=== PATIENT | male | born 1935 | race Caucasian/White ===

== ENCOUNTER 2022-04-28 13:34 | Emergency (ER) | payer OTHER, SELFPAY ==
[2022-04-28 14:05] VITALS: BP 143/74; PULSE 70; RESP 24; TEMP 36.1; O2SAT 97; BMI 33.2
--- NOTE | 2022-04-28 14:47 | CRLHL7_ITS ---
For Patients: As a result of the Century Cures Act, medical imaging exams and procedure reports are released immediately into your electronic medical record. You may view this report before your referring provider. If you have questions, please contact your health care provider. INDICATION: Trauma COMPARISON: None TECHNIQUE: : CT examination of the chest was performed without contrast. Thin axial sections were obtained from above the apices of the lungs to the lung bases. Please note that all CT scans at this facility use dose modulation, iterative reconstruction, and/or weight-based dosing when appropriate to reduce radiation dose to as low as reasonably achievable. FINDINGS: : HEART and MEDIASTINUM: Heart mildly enlarged. No mediastinal or hilar adenopathy or mass. Atherosclerotic vascular and valvular calcifications. No pericardial effusion. No indication of mediastinal vascular injury LUNGS: Basilar opacities likely related to atelectasis or scarring. 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 There is a small right effusion which is probably related to the rib fractures discussed below. There is no pneumothorax VISUALIZED UPPER ABDOMEN: Unusually hyperdense liver on this noncontrast study. The most common cause of this is chronic or prior amiodarone use. Cholelithiasis. No indication of the injury. OSSEOUS STRUCTURES: Demineralized osseous structures. Degenerative changes of the spine. No spine fracture. No sternal fracture. Fractures of the right 3rd through 7th ribs. Maximum displacement is about 1/2 of a rib shaft width TUBES and LINES: Left-sided pacer with leads ending in the right atrium and right ventricle. IMPRESSION: 1. There are fractures of the right 3rd through 7th ribs with maximum displacement about 1/2 of the rib shaft width. No additional acute fractures 2. Small right pleural effusion likely related to the trauma. No acute lung findings. No pneumothorax 3. Asbestos related pleural disease. 4. Other incidental nonacute appearing findings as above Please note that all CT scans at this facility use dose modulation, iterative reconstruction, and/or weight-based dosing when appropriate to reduce radiation dose to as low as reasonably achievable. Dictated by Derick Esteves MD @ 04/28/2022 4:47:42 PM (Electronically Signed)
--- NOTE | 2022-04-28 14:47 | CRLHL7_ITS ---
For Patients: As a result of the Century Cures Act, medical imaging exams and procedure reports are released immediately into your electronic medical record. You may view this report before your referring provider. If you have questions, please contact your health care provider. INDICATION: Trauma COMPARISON: February 20, 2022 TECHNIQUE: CT examination of the head was performed as axial sections without intravenous contrast. Images were obtained from the vertex of the skull through the skull base. Please note that all CT scans at this facility use dose modulation, iterative reconstruction, and/or weight-based dosing when appropriate to reduce radiation dose to as low as reasonably achievable. FINDINGS: Relatively large calcified meningioma in the anterior aspect of the sylvian fissure. This measures 2.9 by 2.4 by 1.9 centimeters and is unchanged. This has minimal mass effect upon the subjacent brain due to atrophy and the fact that it is within the sylvian fissure. There are involutional changes. There is moderate cortical atrophy and there is moderate to severe white matter disease. There is no hydrocephalus. The visualized portions of the orbits are normal in appearance. The osseous structures are normal in appearance with no sign of abnormality in the skull base or calvarium. IMPRESSION: 1. No acute intracranial posttraumatic findings. 2. Atrophy and white matter disease. 3. Relatively large calcified meningioma in the right frontotemporal area measuring 2.9 x 2.4 x 1.9 centimeters. This is unchanged. Little mass effect upon the subjacent brain include atrophy and the fact that the mass impinges upon the sylvian fissure Please note that all CT scans at this facility use dose modulation, iterative reconstruction, and/or weight-based dosing when appropriate to reduce radiation dose to as low as reasonably achievable. Dictated by Derick Esteves MD @ 04/28/2022 4:47:42 PM (Electronically Signed)
--- NOTE | 2022-04-28 14:51 | ED.GENADULT ---
HPI - General Adult General Time Seen by Provider: 14:51 Date Seen: 04/28/22 Chief complaint: Shoulder Injury/Pain Stated complaint: Fell, hurt right shoulder Time Seen by Provider: 04/28/22 13:58 Source: patient and family () Mode of arrival: ambulatory History of Present Illness HPI narrative: 86-year-old male presents for evaluation of injuries sustained in a fall 2 days ago. He was walking outside with a cane 2 days ago when he took a misstep and fell. He landed primarily on his right shoulder and upper back but also hit his right face andforehead. He did not lose consciousness. He denied any lightheadedness or feeling ill prior to falling. He was eventually able to get up back up on his feet and despite his 's recommendation he he come to the emergency room he refused until today. He came to the emergency room today because he is still being bothered primarily by pain in his right scapula area. He is also having some pain in his right upper lip where he has a laceration on the inside and multiple other small abrasions which are not bothering Him. he normally walks with a walker but was using a cane on this occasion. He does have a history of falls. He reports no recent illness. He has not had a cold, sore throat, fever, shortness of breath. He has a chronic cough which is unchanged. He has had no chest pain or syncope. Other than his injuries he has no other concerns today. Related Data Home Medications Medication Instructions Recorded Confirmed amiodarone 200 mg tablet mg 04/28/22 amlodipine 5 mg tablet mg 04/28/22 atorvastatin 20 mg tablet mg 04/28/22 citalopram 20 mg tablet mg 04/28/22 losartan 100 mg tablet mg 04/28/22 metoprolol succinate 25 mg mg PO 04/28/22 tablet,extended release 24 hr omeprazole 20 mg capsule,delayed mg 04/28/22 release rivaroxaban 20 mg tablet (Xarelto) mg 04/28/22 Allergies Allergy/AdvReac Type Severity Reaction Status Date / Time No Known Drug Allergies Allergy Verified 04/28/22 14:16 Review of Systems Narrative: complete review of systems is negative except as noted above [facility] Medical History (Updated 04/28/22 @ 17:10 by Stevie Marin MD) Atrial fibrillation BPH with obstruction/lower urinary tract symptoms Coronary artery disease Frequent falls Hypertension Left bundle branch block Meningioma Non-STEMI (non-ST elevated myocardial infarction) Obstructive sleep apnea Orbital floor fracture Pacemaker Pulmonary hypertension Sensorineural hearing loss (SNHL) of both ears Sick sinus syndrome Vitamin B12 deficiency Surgical History (Updated 04/28/22 @ 15:05 by Stevie Marin MD) History of cataract surgery History of total knee arthroplasty S/P total right hip arthroplasty Social History Smoking Status: Former smoker What tobacco products do you use: cigarettes Smoking quit date/years: <= 15 years ago Do you use any of these nicotine containing products: None Second hand tobacco smoke exposure: No How often do you have a drink containing alcohol: monthly or less How often do you have six or more drinks on one occasion: Never AUDIT-C Alcohol total score: 1 Non-prescribed substance use: denies use Exam Narrative: Exam Narrative: he is alert and appears in no distress. He gives his own history. He is somewhat hard of hearing. Head is examined he. He has multiple abrasions over the right forehead, bridge of his nose, right cheek, right upper lip and chin. Right upper lip is quite swollen. Mucosal surface has a somewhat jagged laceration. Teeth are in good alignment per patient. Oropharynx is otherwise unremarkable. There is no facial asymmetry. Pupils are equal round reactive to light. Extraocular movements are full. Visual garcia are intact. Neck is supple without mass or adenopathy. He has no tenderness. Has limited range of motion of his neck but does not changed from baseline and is not painful. Both upper extremities have old bruises and right hand has some abrasions. Palpation over his upper extremities bilaterally without areas of tenderness. He has relatively normal range of motion in his right shoulder and right elbow without significant discomfort. Upper extremity strength is near normal in elbow wrist and fingers bilaterally. Palpation over his back shows diffuse tenderness extending from the shoulder over this entire right scapula to the midline thoracic spine and down lower thoracic spine. Inspection of the skin shows no bruising or abrasions in this area. Breath sounds are clear to auscultation. Cardiovascular: S1, S2, relatively regular rhythm. Distant heart sounds. Abdomen: Bowel sounds active. Abdomen is soft without tenderness. Lower extremities without pain. He has an abrasion over his left anterior knee without evidence of infection. Old surgical scar appears normal. He reports for the last 2 days he has been weight-bearing without discomfort Const: Vital Signs, click to edit/add: Vital Signs - 24 hr 04/28/22 14:05 04/28/22 15:21 Temperature 97.0 F L Pulse Rate [Right Pulse Oximeter] 70 62 Respiratory Rate 24 Blood Pressure [Le ft Upper Arm] 143/74 H 147/75 H Pulse Oximetry 97 97 Documenting provider has reviewed patient's vital signs: yes Course Course Hospital Course: patient remains stable through his emergency department stay. CT head was normal. CT chest showed fractures of right ribs 3 through 7 Vital Signs Vital signs: Initial Vital Signs Temperature 97.0 F L 04/28/22 14:05 Temperature Source Temporal Artery Scan 04/28/22 14:05 Pulse Rate 70 04/28/22 14:05 Respiratory Rate 24 04/28/22 14:05 Blood Pressure 143/74 H 04/28/22 14:05 Blood Pressure Mean 97 04/28/22 14:05 Blood Pressure Position Sitting 04/28/22 14:05 Pulse Oximetry 97 04/28/22 14:05 Oxygen Delivery Method 04/28/22 14:05 Vital Signs Temperature 97.0 F L 04/28/22 14:05 Pulse Rate 70 04/28/22 14:05 Respiratory Rate 24 04/28/22 14:05 Blood Pressure 143/74 H 04/28/22 14:05 Pulse Oximetry 97 04/28/22 14:05 Temperature 97.0 F L 04/28/22 14:05 Pulse Rate 62 04/28/22 15:21 Respiratory Rate 24 04/28/22 14:05 Blood Pressure 147/75 H 04/28/22 15:21 Pulse Oximetry 97 04/28/22 15:21 Discharge Plan Discharge Clinical Impression: Fracture, ribs Patient Disposition: Home w/ Parent or Adult Condition: Stable Activity Level: Activity as Tolerated and Use Walker Activity Detail: Use elastic bandage for comfort Discharge Diet: Regular Prescriptions: No Action atorvastatin 20 mg tablet 0RF amiodarone 200 mg tablet 0RF amlodipine 5 mg tablet 0RF citalopram 20 mg tablet 0RF omeprazole 20 mg capsule,delayed release(DR/EC) 0RF metoprolol succinate 25 mg tablet extended release 24 hr PO 0RF losartan 100 mg tablet 0RF Xarelto 20 mg tablet 0RF Follow Up/Referrals: Luis Enrique Bernal MD [Primary Care Provider] - Stand Alone Forms: [employer] Info Instructions
[2022-04-28 15:21] VITALS: BP 147/75; PULSE 62; O2SAT 97
[2022-04-28 17:37] VITALS: BP 156/88; PULSE 62
== END 2022-04-28 17:38 ==
PROVIDERS: Emergency Provider Family Medicine; PCP Family Medicine
DX: S22.41XA Multiple fractures of ribs, right side, initial encounter for closed fracture (principal); W10.9XXA Fall (on) (from) unspecified stairs and steps, initial encounter
CPT/HCPCS: 70450; 71250; 99283; 99284

== ENCOUNTER 2023-07-16 14:05 | Outpatient (CLI) | payer OTHER, SELFPAY | END 2023-07-16 14:06 | disposition home or self-care (01) | PROVIDERS: PCP Family Medicine; Visit Provider Family Medicine | DX: R29.898 Other symptoms and signs involving the musculoskeletal system (principal); I70.202 Unspecified atherosclerosis of native arteries of extremities, left leg; R20.0 Anesthesia of skin | CPT/HCPCS: 93922; 93926 ==

== ENCOUNTER 2023-08-27 12:57 | Emergency (ER) | payer OTHER, SELFPAY ==
[2023-08-27 13:24] VITALS: BP 144/72; PULSE 61; RESP 18; TEMP 36.5; O2SAT 94; BMI 34.0
--- NOTE | 2023-08-27 13:34 | CRLHL7_ITS ---
For Patients: As a result of the Century Cures Act, medical imaging exams and procedure reports are released immediately into your electronic medical record. You may view this report before your referring provider. If you have questions, please contact your health care provider. Indication: Rosario Jain Technique: Volumetric multidetector CT images of the head were obtained without the administration of low osmolar intravenous contrast. Comparison: CT head April 28, 2022 Findings: There is no intra-axial or extra-axial fluid collection. There is demonstration of a calcified meningioma along the right cerebral convexity similar to previous exam. There is otherwise no midline shift or mass effect. There is stable age-related cortical atrophy with sulcal widening and ex vacuo dilatation of the lateral ventricles. There are chronic small vessel disease changes in the subcortical and periventricular white matter without lost eason-white differentiation. There is mild periorbital, preseptal soft tissue prominence. Otherwise, the orbits and their contents are within normal limits. The bony calvarium is grossly intact. The paranasal sinuses are clear. The mastoid air cells are well aerated. Impression: Age-related and chronic small-vessel disease changes of the brain without acute intracranial abnormality. Calcified meningioma along the right cerebral convexity stable from comparison. Please note that all CT scans at this facility use dose modulation, iterative reconstruction, and/or weight-based dosing when appropriate to reduce radiation dose to as low as reasonably achievable. Dictated by Venkatesh López MD @ 08/27/2023 1:56:03 PM (Electronically Signed)
--- NOTE | 2023-08-27 13:49 | ED_ITS ---
HPI - Fall General Time Seen by Provider: 13:49 Date Seen: 08/27/23 Chief Complaint: Fall/Minor Trauma Stated Complaint: Fell Sunday, head pain Time Seen by Provider: 08/27/23 13:45 Source: patient and RN notes reviewed Mode of arrival: ambulatory Limitations: no limitations History of Present Illness HPI Narrative: This 88 yo male is brought in by his for c/o head pain after fall on Sunday. He states he was down on his knees picking up things from the ground when he fell. He has scabbing and abrasion with possible underlying cut on his right upper lip, he states his lip is feeling fine. He is complaining of pain in the back of his head. It sounds as if he actually fell forward but he is also complaining pain in the back of his head. He states he called for his , they had to have the police come pick him up which he did not remember. He started to talk about double vision when I was in seeing him, what he described was them driving here, he saw people standing along the road side and then when he closes eyes an open them, they were not there anymore. He states when they were checking into the ER there was a girl sitting on the desk top in a red dress, when he closes eyes and then opened him she was gone. He is describing visual hallucinations. He states these have been happening for a while, proceed this fall. Reviewed with both he and his that they should follow-up with neurology for this. He is aware that these things are not there when he seeing them. He is now complaining of neck pain. He states it start ed on the left with the bulge on the left side, massage it went away and now is moved over to the right side. He denies any pain into his arms. He is having no difficulty breathing, no chest pain. He would come planes of pain only in the neck, nothing in his abdomen or legs. Does not sound like there is any loss of consciousness. Per nursing staff protocols in triage, head CT noncontrast was ordered given the complaint of head pain and the fall being on a novel anticoagulant. complaint: fall Related Data Home Medications Medication Instructions Recorded Confirmed amiodarone 200 mg tablet mg 04/28/22 amlodipine 5 mg tablet mg 04/28/22 atorvastatin 20 mg tablet mg 04/28/22 citalopram 20 mg tablet mg 04/28/22 losartan 100 mg tablet mg 04/28/22 metoprolol succinate 25 mg mg PO 04/28/22 tablet,extended release 24 hr omeprazole 20 mg capsule,delayed mg 04/28/22 release rivaroxaban 20 mg tablet (Xarelto) mg 04/28/22 Allergies Allergy/AdvReac Type Severity Reaction Status Date / Time No Known Drug Allergies Allergy Verified 04/28/22 14:16 Review of Systems Status of ROS: Reports: 6 or more systems reviewed and unremarkable except as noted in History and below [facility] Medical History Vitamin B12 deficiency ?E53.8 - Deficiency of other specified B group vitamins (ICD-10) Frequent falls ?R29.6 - Repeated falls (ICD-10) Meningioma ?D32.9 - Benign neoplasm of meninges, unspecified (ICD-10) Sick sinus syndrome ?I49.5 - Sick sinus syndrome (ICD-10) Left bundle branch block ?I44.7 - Left bundle-branch block, unspecified (ICD-10) Sensorineural hearing loss (SNHL) of both ears ?H90.3 - Sensorineural hearing loss, bilateral (ICD-10) Pulmonary hypertension ?I27.20 - Pulmonary hypertension, unspecified (ICD-10) Obstructive sleep apnea ?G47.33 - Obstructive sleep apnea (adult) (pediatric) (ICD-10) Non-STEMI (non-ST elevated myocardial infarction) ?I21.4 - Non-ST elevation (NSTEMI) myocardial infarction (ICD-10) Coronary artery disease ?I25.10 - Atherosclerotic heart disease of [place] coronary artery without angina pectoris (ICD-10) BPH with obstruction/lower urinary tract symptoms ?N40.1 - Benign prostatic hyperplasia with lower urinary tract symptoms (ICD- 10) ?N13.8 - Other obstructive and reflux uropathy (ICD-10) Orbital floor fracture ?S02.30XA - Fracture of orbital floor, unspecified side, initial encounter for closed fracture (ICD-10) Pacemaker ?Z95.0 - Presence of cardiac pacemaker (ICD-10) Atrial fibrillation ?I48.91 - Unspecified atrial fibrillation (ICD-10) Hypertension ?I10 - Essential (primary) hypertension (ICD-10) Surgical History History of total knee arthroplasty ?Z96.659 - Presence of unspecified artificial knee joint (ICD-10) S/P total right hip arthroplasty ?Z96.641 - Presence of right artificial hip joint (ICD-10) History of cataract surgery ?Z98.49 - Cataract extraction status, unspecified eye (ICD-10) Social History Smoking Status: Former smoker What tobacco products do you use: cigarettes Smoking quit date/years: <= 15 years ago Do you use any of these nicotine containing products: None Second hand tobacco smoke exposure: No How often do you have a drink containing alcohol: monthly or less How often do you have six or more drinks on one occasion: Never AUDIT-C Alcohol total score: 1 Non-prescribed substance use: denies use service: Yes Exam Const: Vital Signs, click to edit/add: Vital Signs - 24 hr 08/27/23 13:24 08/27/23 14:51 Temperature 97.7 F Pulse Rate [Pulse Oximeter] 61 62 Respiratory Rate 18 18 Blood Pressure [Ri ght Upper Arm] 144/72 H 175/81 H Pulse Oximetry 94 97 Oxygen Delivery Me thod Room Air Room Air Patient is an 88-year-old male seen in the wheelchair in the hallway in ially, volume and acuity in the ED did not allow room for him. He was alert, interactive, hard of hearing but speech normal. He had symmetrical facial function. Pupils are equal round, conjugate gaze, sclera clear. No drainage from ear canals or nares. He has a large abrasion upper central to right lip that is scabbed, well adhered, difficult to say if there is possibly in the underlying laceration but this is well seated with scabbing. Face otherwise atraumatic. He complains of no midline tenderness over cervical spine but right paraspinous tenderness comes seems to be more muscular. Do observe him turning his head. No pain into the arms, has an old contracture and muscle wasting left extremity. Lungs are clear with good air entry, CV regular rate and rhythm no murmur. Abdomen is soft, nontender. Documenting provider has reviewed patient's vital signs: yes Course Course ED Course: Head CT was done on presentation per nursing protocol, I did put it in for them. After seen him, do think he needs a cervical spine CT, they are in agreement, Will get this ordered. Reevaluation(s) Time of Reevaluation #1: 16:58 Reevaluation #1: Reviewed normal head CT and cervical spine CT for acute changes. We reviewed the difficulty of pain management for him. Narcotic pain medicines as well as muscle relaxants could be considered but they certainly may increase the risk of falls for him. His noted that narcotic pain medicines just really do not agree with him and she agrees to not utilize these medicines. They have been trying some Tylenol. We discussed trying simple use of maybe heat her ice, can see which works better. With him being on a blood thinner, do not feel I want to try any trigger point injections along that right occipital base area, think the risk of bleeding which could aggravate things worse are higher in him. I think this potential risks for him outweigh any benefits. Vital Signs Vital signs: Initial Vital Signs Temperature 97.7 F 08/27/23 13:24 Temperature Source Temporal Artery Scan 08/27/23 13:24 Pulse Rate 61 08/27/23 13:24 Respiratory Rate 18 08/27/23 13:24 Blood Pressure 144/72 H 08/27/23 13:24 Blood Pressure Mean 96 08/27/23 13:24 Blood Pressure Position Sitting 08/27/23 13:24 Pulse Oximetry 94 08/27/23 13:24 Oxygen Delivery Method Room Air 08/27/23 13:24 Vital Signs Temperature 97.7 F 08/27/23 13:24 Pulse Rate 61 08/27/23 13:24 Respiratory Rate 18 08/27/23 13:24 Blood Pressure 144/72 H 08/27/23 13:24 Pulse Oximetry 94 08/27/23 13:24 Oxygen Delivery Method Room Air 08/27/23 13:24 Temperature 97.7 F 08/27/23 13:24 Pulse Rate 62 08/27/23 14:51 Respiratory Rate 18 08/27/23 14:51 Blood Pressure 175/81 H 08/27/23 14:51 Pulse Oximetry 97 08/27/23 14:51 Oxygen Delivery Method Room Air 08/27/23 14:51 MDM - Fall Imaging Data CT scan - head: Attestation: I have reviewed the pertinent imaging results. Radiologist's impression: Patient: MENDOZA RUIZ Facility:?[facility] Patient ID:?[id number] Site Patient ID:?[id number]. Site :?[id number] Study:?CT Head W/O-08/27/2023 1:50:42 PM Ordering Physician:?Gavin Chavez Final Report: Indication: Fall, Xarelto Technique: Volumetric multidetector CT images of the head were obtained without the administration of low osmolar intravenous contrast. Comparison: CT head April 28, 2022 Findings: There is no intra-axial or extra-axial fluid collection. There is demonstration of a calcified meningioma along the right cerebral convexity similar to previous exam. There is otherwise no midline shift or mass effect. There is stable age-related cortical atrophy with sulcal widening and ex vacuo dilatation of the lateral ventricles. There are chronic small vessel disease changes in the subcortical and periventricular white matter without lost eason-white differentiation. There is mild periorbital, preseptal soft tissue prominence. Otherwise, the orbits and their contents are within normal limits. The bony calvarium is grossly intact. The paranasal sinuses are clear. The mastoid air cells are well aerated. Impression: Age-related and chronic small-vessel disease changes of the brain without acute intracranial abnormality. Calcified meningioma along the right cerebral convexity stable from comparison. Please note that all CT scans at this facility use dose modulation, iterative reconstruction, and/or weight-based dosing when appropriate to reduce radiation dose to as low as reasonably achievable. Dictated by Venkatesh López MD @ 08/27/2023 1:56:03 PM (Electronic Signature) CT cervical spine: Attestation: I have reviewed the pertinent imaging results. Radiologist's impression: Patient: MENDOZA RUIZ Facility:?[facility] Patient ID:?[id number] Site Patient ID:?[id number] Site :?[id number] Study:?CT Spine Cervical -08/27/2023 2:34:44 PM Ordering Physician:Alfred Chavez Final Report: Indication: Fall, neck Pain Technique: Volumetric multidetector CT images of the cervical spine were obtained without the administration of IV contrast. Comparison: CT cervical spine May 19, 2020 and February 20, 2022 Findings: The cervical vertebral body heights are grossly maintained with endplate Schmorl`s defects. There is straightening of the normal cervical lordosis without evidence of significant spondylolisthesis. There is no displaced fracture or dislocation. There is moderate to severe degenerative disc disease with disc height loss and marginal osteophyte formation. There is moderate to severe degenerative change of the atlantoaxial joint. There is moderate to severe facet arthrosis. The paraspinous soft tissues are grossly within normal limits. 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 Please note that all CT scans at this facility use dose modulation, iterative reconstruction, and/or weight-based dosing when appropriate to reduce radiation dose to as low as reasonably achievable. Dictated by Venkatesh López MD @ 08/27/2023 4:01:24 PM (Electronic Signature) Critical Care Time Critical Care Time Critical Care Time: No Discharge Plan Discharge Clinical Impression: Acute cervical myofascial strain, Closed head injury, Fall Patient Disposition: Home, Self-Care Condition: Stable Instructions: Cervical Strain (ED), Fall Prevention for Older Adults (ED), Head Injury (ED) Additional Instructions: Can continue with Tylenol, 1000 mg up to 3 times a day as needed for pain control. Can try ice or heat to the neck, use which feels better. May want to try heat 1st and see if that does help him. If he is continuing to have neck pain or ongoing symptoms, follow up in clinic, consideration for referral to physical therapy may be considered. Activity Level: Activity as Tolerated Prescriptions: No Action atorvastatin 20 mg tablet amiodarone 200 mg tablet amlodipine 5 mg tablet citalopram 20 mg tablet omeprazole 20 mg capsule,delayed release(DR/EC) metoprolol succinate 25 mg tablet extended release 24 hr PO losartan 100 mg tablet Xarelto 20 mg tablet Follow Up/Referrals: Luis Enrique Bernal MD [Primary Care Provider] - Stand Alone Forms: Digital [employer] Info Instructions
--- NOTE | 2023-08-27 14:06 | CRLHL7_ITS ---
For Patients: As a result of the Cures Act, medical imaging exams and procedure reports are released immediately into your electronic medical record. You may view this report before your referring provider. If you have questions, please contact your health care provider. Indication: Fall, neck Pain Technique: Volumetric multidetector CT images of the cervical spine were obtained without the administration of IV contrast. Comparison: CT cervical spine May 19, 2020 and February 20, 2022 Findings: The cervical vertebral body heights are grossly maintained with endplate Schmorl`s defects. There is straightening of the normal cervical lordosis without evidence of significant spondylolisthesis. There is no displaced fracture or dislocation. There is moderate to severe degenerative disc disease with disc height loss and marginal osteophyte formation. There is moderate to severe degenerative change of the atlantoaxial joint. There is moderate to severe facet arthrosis. The paraspinous soft tissues are grossly within normal limits. 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 Please note that all CT scans at this facility use dose modulation, iterative reconstruction, and/or weight-based dosing when appropriate to reduce radiation dose to as low as reasonably achievable. Dictated by Venkatesh López MD @ 08/27/2023 4:01:24 PM (Electronically Signed)
[2023-08-27 14:51] VITALS: BP 175/81; PULSE 62; RESP 18; O2SAT 97
== END 2023-08-27 17:13 | disposition home or self-care (01) ==
PROVIDERS: Emergency Provider Family Medicine; PCP Family Medicine
DX: S16.1XXA Strain of muscle, fascia and tendon at neck level, initial encounter (principal); S09.90XA Unspecified injury of head, initial encounter; W18.30XA Fall on same level, unspecified, initial encounter
CPT/HCPCS: 70450; 72125; 99284

== ENCOUNTER 2024-06-05 12:33 | Emergency (ER) | payer OTHER, SELFPAY ==
[2024-06-05 12:25] VITALS: BP 133/92; PULSE 77; RESP 18; TEMP 36.9; O2SAT 96; BMI 34.2
--- NOTE | 2024-06-05 12:44 | CRLHL7_ITS ---
For Patients: As a result of the Cures Act, medical imaging exams and procedure reports are released immediately into your electronic medical record. You may view this report before your referring provider. If you have questions, please contact your health care provider. INDICATION: .FALL, HIT HEAD, PT ON BLOOD THINNERS, NECK PAIN TECHNIQUE: CT cervical spine without contrast. COMPARISON: July 2023. FINDINGS: Nondisplaced acute base of dens fracture. No listhesis. Bony mineralization is age appropriate. No prevertebral soft tissue hematoma or swelling. No soft tissue abnormality is identified. Multilevel spondylosis. No pathologically enlarged lymph nodes. Thyroid is normal. Lung apices are clear. IMPRESSION: Acute nondisplaced base of dens fracture. Please note that all CT scans at this facility use dose modulation, iterative reconstruction, and/or weight-based dosing when appropriate to reduce radiation dose to as low as reasonably achievable. Dictated by Tulio Peacock MD @ 06/05/2024 1:23:11 PM (Electronically Signed)
--- NOTE | 2024-06-05 12:44 | CRLHL7_ITS ---
For Patients: As a result of the Century Cures Act, medical imaging exams and procedure reports are released immediately into your electronic medical record. You may view this report before your referring provider. If you have questions, please contact your health care provider. INDICATION: CT head 08/27/2023. TECHNIQUE: CT head without contrast. COMPARISON: CT head 08/27/2023. FINDINGS: ventricles are symmetric. Basal cisterns patent. No sulcal effacement. The ventricles, cisterns, and other CSF containing spaces are symmetrically prominent secondary to diffuse parenchymal volume loss but are otherwise normal as to shape and position. BRAIN: Diffuse cerebral volume loss. Periventricular and subcortical hypodensities likely secondary to age-related microvascular ischemic changes. No acute infarct or hemorrhage. VASCULAR: Calcification of the cavernous carotids. Re-demonstration of calcified meningioma along the right frontal convexity. EXTRA-CRANIAL: No acute calvarial or facial fractures. Mild scattered sinus mucosal thickening. Mastoids are clear. Bilateral lens replacements. IMPRESSION: No acute intracranial abnormality. Please note that all CT scans at this facility use dose modulation, iterative reconstruction, and/or weight-based dosing when appropriate to reduce radiation dose to as low as reasonably achievable. Dictated by Bess Waters MD @ 06/05/2024 1:11:31 PM (Electronically Signed)
[2024-06-05 12:45] VITALS: PULSE 60; RESP 16; O2SAT 96
--- NOTE | 2024-06-05 12:45 | ED_ITS ---
HPI - Wound/Laceration General Time Seen by Provider: 12:33 Date Seen: 06/05/24 Chief Complaint: Laceration/Wound Stated Complaint: fall Time Seen by Provider: 06/05/24 12:43 Source: patient, EMS and RN notes reviewed Mode of arrival: EMS Limitations: no limitations History of Present Illness HPI narrative: Patient was brought in by ambulance from his home in [place] after sustaining a injury to his forehead and complaint of some neck pain while falling in his home. He resides in [place] independently, was going down the hallway and tried to step over shoes that were in his past. He tripped over the shoes and fell forward. He states he was unable to get his arms out to brace and landed on his face. He has a mild headache but denies any visual changes. He does state he has a little burning or tingling sensation in his neck, some neck discomfort. He does not have any pain going into his shoulders or arms, no numbness tingling or weakness noted in his arms. He is having no difficulty breathing, no back pain, no abdominal pain. He did not get his arms out, has no pain in his extremities from the fall, denies any pain in his legs from the fa ll. Nursing staff did look up his tetanus and it is up-to-date in 2018. This patient is noted to have large laceration over his forehead that was bleeding copiously per EMS. They do have a pressure dressing on it and can see that there is some blood saturating into the bandages but not dripping from the bandages at this point. They also note that he has a minor laceration to his nasal bridge. This injury happened just prior to arrival. EMS did state that he was on blood thinners with Eliquis but his chart and his confirmed that it is actually Xarelto. Related Data Home Medications ?Medication ?Instructions ?Recorded ?Confirmed amiodarone 200 mg tablet mg 04/28/22 amlodipine 5 mg tablet mg 04/28/22 atorvastatin 20 mg tablet mg 04/28/22 citalopram 20 mg tablet mg 04/28/22 losartan 100 mg tablet mg 04/28/22 metoprolol succinate 25 mg mg PO 04/28/22 tablet,extended release 24 hr omeprazole 20 mg capsule,delayed mg 04/28/22 release rivaroxaban 20 mg tablet (Xarelto) mg 04/28/22 Allergies Allergy/AdvReac Type Severity Reaction Status Date / Time No Known Drug Allergies Allergy Verified 04/28/22 14:16 Review of Systems Status of ROS: Reports: 6 or more systems reviewed and unremarkable except as noted in History and below [facility] Medical History Vitamin B12 deficiency ?E53.8 - Deficiency of other specified B group vitamins (ICD-10) Frequent falls ?R29.6 - Repeated falls (ICD-10) Meningioma ?D32.9 - Benign neoplasm of meninges, unspecified (ICD-10) Sick sinus syndrome ?I49.5 - Sick sinus syndrome (ICD-10) Left bundle branch block ?I44.7 - Left bundle-branch block, unspecified (ICD-10) Sensorineural hearing loss (SNHL) of both ears ?H90.3 - Sensorineural hearing loss, bilateral (ICD-10) Pulmonary hypertension ?I27.20 - Pulmonary hypertension, unspecified (ICD-10) Obstructive sleep apnea ?G47.33 - Obstructive sleep apnea (adult) (pediatric) (ICD-10) Non-STEMI (non-ST elevated myocardial infarction) ?I21.4 - Non-ST elevation (NSTEMI) myocardial infarction (ICD-10) Coronary artery disease ?I25.10 - Atherosclerotic heart disease of [place] coronary artery without angina pectoris (ICD-10) BPH with obstruction/lower urinary tract symptoms ?N40.1 - Benign prostatic hyperplasia with lower urinary tract symptoms (ICD- 10) ?N13.8 - Other obstructive and reflux uropathy (ICD-10) Orbital floor fracture ?S02.30XA - Fracture of orbital floor, unspecified side, initial encounter for closed fracture (ICD-10) Pacemaker ?Z95.0 - Presence of cardiac pacemaker (ICD-10) Atrial fibrillation ?I48.91 - Unspecified atrial fibrillation (ICD-10) Hypertension ?I10 - Essential (primary) hypertension (ICD-10) Surgical History History of total knee arthroplasty ?Z96.659 - Presence of unspecified artificial knee joint (ICD-10) S/P total right hip arthroplasty ?Z96.641 - Presence of right artificial hip joint (ICD-10) History of cataract surgery ?Z98.49 - Cataract extraction status, unspecified eye (ICD-10) Social History Smoking Status: Former smoker What tobacco products do you use: cigarettes Smoking quit date/years: <= 15 years ago Do you use any of these nicotine containing products: None Second hand tobacco smoke exposure: No How often do you have a drink containing alcohol: monthly or less How often do you have six or more drinks on one occasion: Never AUDIT-C Alcohol total score: 1 Non-prescribed substance use: denies use service: Yes Exam Const: Vital Signs, click to edit/add: Vital Signs - 24 hr 06/05/24 12:25 Temperature 98.5 F Pulse Rate [Pulse Oximeter] 77 Respiratory Rate 18 Blood Pressure [Ri ght Upper Arm] 133/92 H Pulse Oximetry 96 Oxygen Delivery Me thod Room Air This is an alert and awake patient, able speak in complete sentences. No concern for any airway issues, not hypotensive. His wound on his forehead has bandages on it. His GCS at time of arrival is 15/15. The patient has some swelling over his nasal bridge, small obliquely situated wound with mild oozing, approximately 4-5 mm long. Some dried blood around the nares but the blood I think came from his face, do not see anything internally in the nose. There is some tenderness and swelling over the nasal bridge. Pupils are equal round reactive, sclera clear. Lower face without any traumatic change good air entry, no wheezing or crackles. CV irregular but no murmur. Abdomen is soft, nontender, nondistended, no masses. Moving upper extremities, no traumatic change noted no neurologic deficits noted. Lower extremities without any noted concerning traumatic change or pain. Neurologically intact. Patient does complain of some pain over his center cervical spine and paraspinous area, reviewed with him that we will get imaging. Did remove the bandaging from his forehead, had active bleeding from the inferior edge of a somewhat irregular 4 cm laceration. It was actively copiously bleeding. Wound was necessary to a 10 to immediately. Procedure note: 10 mL of lidocaine with epinephrine was injected locally into his wound. He had such copious active bleeding that the wound closure was necessitated. One horizontal mattress using Vicryl in the deep tissue was placed in the area of maximal bleeding. This did help contain some of the bleed ing. Nine simple interrupted sutures using 4-0 Ethilon were then used to reapproximate the skin edges. Hemostasis was observed, there was good closure of the wound. One simple interrupted suture was placed over the nasal bridge laceration for closure and observation of hemostasis seen after this. Documenting provider has reviewed patient's vital signs: yes Course Course ED Course: Patient is aware to not move his head or neck, stay in position of comfort. He has not tolerated cervical spine collars, increases pain. He will be getting imaging of his head due to the blood thinners in the fall, maxillofacial imaging as well as noncontrast cervical spine to rule out acute traumatic injury. He is currently neurologically, hemodynamically stable and bleeding has been controlled from his wounds. Reevaluation(s) Time of Reevaluation #1: 13:54 Reevaluation #1: Reviewed with patient and his that there is a cervical spine fracture, fracture at the base of the dens. We discussed potential instability of cervical spine fractures in resultant paralysis. The cervical collars we have her not working, we are working to do immobilization with rolled towel rolls and taping. His forehead has been bandage. They accept transfer to [place], his states that they love this place. Consultations Consultation #1: Contacted [facility] [place] ED and spoke with Dr. Cesar. She accepts this patient after discussion of the finding of the base of the dens fracture in his cervical spine. Did review with her that we are working on trying to find appropriate but comfortable cervical spine immobilization for this patient. Time: 13:44 Vital Signs Vital signs: Initial Vital Signs Temperature 98.5 F 06/05/24 12:25 Temperature Source Temporal Artery Scan 06/05/24 12:25 Pulse Rate 77 06/05/24 12:25 Pulse Rhythm Regular 06/05/24 12:25 Respiratory Rate 18 06/05/24 12:25 Blood Pressure 133/92 H 06/05/24 12:25 Blood Pressure Mean 105 06/05/24 12:25 Blood Pressure Position Supine 06/05/24 12:25 Pulse Oximetry 96 06/05/24 12:25 Oxygen Delivery Method Room Air 06/05/24 12:25 Vital Signs Temperature 98.5 F 06/05/24 12:25 Pulse Rate 77 06/05/24 12:25 Respiratory Rate 18 06/05/24 12:25 Blood Pressure 133/92 H 06/05/24 12:25 Pulse Oximetry 96 06/05/24 12:25 Oxygen Delivery Method Room Air 06/05/24 12:25 Temperature 98.5 F 06/05/24 12:25 Pulse Rate 77 06/05/24 12:25 Respiratory Rate 18 06/05/24 12:25 Blood Pressure 133/92 H 06/05/24 12:25 Pulse Oximetry 96 06/05/24 12:25 Oxygen Delivery Method Room Air 06/05/24 12:25 MDM - Wound/Laceration Imaging Data CT scan - head: Attestation: I have reviewed the pertinent imaging results. Radiologist's impression: Patient: MENDOZA RUIZ Facility:?[facility] Patient ID:?[id number] Site Patient ID:?[id number]. Site :?[id number] Study:?CT-Head WITHOUT-06/05/2024 1:02:01 PM Ordering Physician:Alfred Chavez Final Report: INDICATION: CT head 08/27/2023. TECHNIQUE: CT head without contrast. COMPARISON: CT head 08/27/2023. FINDINGS: MASS EFFECT & VENTRICLES: No significant midline shift. The lateral ventricles are symmetric. Basal cisterns patent. No sulcal effacement. The ventricles, cisterns, and other CSF containing spaces are symmetrically prominent secondary to diffuse parenchymal volume loss but are otherwise normal as to shape and position. BRAIN: Diffuse cerebral volume loss. Periventricular and subcortical hypodensities likely secondary to age-related microvascular ischemic changes. No acute infarct or hemorrhage. VASCULAR: Calcification of the cavernous carotids. Re-demonstration of calcified meningioma along the right frontal convexity. EXTRA-CRANIAL: No acute calvarial or facial fractures. Mild scattered sinus mucosal thickening. Mastoids are clear. Bilateral lens replacements. IMPRESSION: No acute intracranial abnormality. Please note that all CT scans at this facility use dose modulation, iterative reconstruction, and/or weight-based dosing when appropriate to reduce radiation dose to as low as reasonably achievable. Dictated by Bess Waters MD @ 06/05/2024 1:11:31 PM (Electronic Signature) CT cervical spine: Attestation: I have reviewed the pertinent imaging results. Radiologist's impression: Patient: MENDOZA RUIZ Facility:?[facility] Patient ID:?[id number] Site Patient ID:?[id number]. Site :?[id number] Study:?CT-Spine Cervical WITHOUT-06/05/2024 1:02:42 PM Ordering Physician:?Gavin Chavez Final Report: INDICATION: .FALL, HIT HEAD, PT ON BLOOD THINNERS, NECK PAIN TECHNIQUE: CT cervical spine without contrast. COMPARISON: July 2023. FINDINGS: Nondisplaced acute base of dens fracture. No listhesis. Bony mineralization is age appropriate. No prevertebral soft tissue hematoma or swelling. No soft tissue abnormality is identified. Multilevel spondylosis. No pathologically enlarged lymph nodes. Thyroid is normal. Lung apices are clear. IMPRESSION: Acute nondisplaced base of dens fracture. Please note that all CT scans at this facility use dose modulation, iterative reconstruction, and/or weight-based dosing when appropriate to reduce radiation dose to as low as reasonably achievable. Dictated by Tulio Peacock MD @ 06/05/2024 1:23:11 PM (Electronic Signature) CT- Other: Attestation: I have reviewed the pertinent imaging results. Radiologist's impression: Patient: MENDOZA RUIZ Facility:?[facility] Patient ID:?[id number] Site Patient ID:?[id number] Site :?[id number] Study:?CT-Facial WITHOUT-06/05/2024 1:03:05 PM Ordering Physician:?Gavin Chavez Final Report: INDICATION: Facial injury.FALL, HIT HEAD, PT ON BLOOD THINNERS, NECK PAIN, FACIAL TRAUMA TECHNIQUE: CT maxillofacial without contrast. COMPARISON: CT July 2023. FINDINGS: Facial bones: Tiny acute chip fracture of the nasal bone. No discrete other acute displaced fractures. Specifically, temporomandibular joints, maxilla and mandible appear intact. Orbits and globes: Unremarkable. Globes are intact. No sign of intraorbital hemorrhage or emphysema. Sinuses: No acute or significant findings. Soft tissues: Soft tissue swelling of the nose. IMPRESSION: Tiny acute chip fracture of the nasal bone. Please note that all CT scans at this facility use dose modulation, iterative reconstruction, and/or weight-based dosing when appropriate to reduce radiation dose to as low as reasonably achievable. Dictated by Tulio Peacock MD @ 06/05/2024 1:29:18 PM (Electronic Signature) Discharge Plan Discharge Clinical Impression: Fall Qualifiers: Encounter type: initial encounter Qualified Code(s): W19.XXXA - Unspecified fall, initial encounter Fracture of nasal bone Qualifiers: Encounter type: initial encounter Fracture type: open Qualified Code(s): S02.2XXB - Fracture of nasal bones, initial encounter for open fracture Forehead laceration Qualifiers: Encounter type: initial encounter Qualified Code(s): S01.81XA - Laceration without foreign body of other part of head, initial encounter Closed dens fracture Qualifiers: Encounter type: initial encounter Qualified Code(s): S12.100A - Unspecified displaced fracture of second cervical vertebra, initial encounter for closed fracture Patient Disposition: [facility] Discharge Location: [facility] Condition: Stable Prescriptions: No Action atorvastatin 20 mg tablet amiodarone 200 mg tablet amlodipine 5 mg tablet citalopram 20 mg tablet omeprazole 20 mg capsule,delayed release(DR/EC) metoprolol succinate 25 mg tablet extended release 24 hr PO losartan 100 mg tablet Xarelto 20 mg tablet Follow Up/Referrals: Luis Enrique Bernal MD [Primary Care Provider] -
--- NOTE | 2024-06-05 12:46 | CRLHL7_ITS ---
For Patients: As a result of the Century Cures Act, medical imaging exams and procedure reports are released immediately into your electronic medical record. You may view this report before your referring provider. If you have questions, please contact your health care provider. INDICATION: Facial injury.FALL, HIT HEAD, PT ON BLOOD THINNERS, NECK PAIN, FACIAL TRAUMA TECHNIQUE: CT maxillofacial without contrast. COMPARISON: CT July 2023. FINDINGS: Facial bones: Tiny acute chip fracture of the nasal bone. No discrete other acute displaced fractures. Specifically, temporomandibular joints, maxilla and mandible appear intact. Orbits and globes: Unremarkable. Globes are intact. No sign of intraorbital hemorrhage or emphysema. Sinuses: No acute or significant findings. Soft tissues: Soft tissue swelling of the nose. IMPRESSION: Tiny acute chip fracture of the nasal bone. Please note that all CT scans at this facility use dose modulation, iterative reconstruction, and/or weight-based dosing when appropriate to reduce radiation dose to as low as reasonably achievable. Dictated by Tulio Peacock MD @ 06/05/2024 1:29:18 PM (Electronically Signed)
[2024-06-05 13:00] VITALS: PULSE 63; O2SAT 96
[2024-06-05 14:02] VITALS: BP 175/92; PULSE 60; RESP 16; O2SAT 97
== END 2024-06-05 14:34 | disposition short-term general hospital (02) ==
PROVIDERS: Emergency Provider Family Medicine; PCP Family Medicine
DX: S02.2XXA Fracture of nasal bones, initial encounter for closed fracture (principal); S12.120A Other displaced dens fracture, initial encounter for closed fracture; S01.91XA Laceration without foreign body of unspecified part of head, initial encounter; W18.30XA Fall on same level, unspecified, initial encounter
CPT/HCPCS: 12002; 70450; 70486; 72125; 99284

== ENCOUNTER 2024-06-05 14:23 | Outpatient (CLI) | payer OTHER, SELFPAY | END 2024-06-05 14:24 | disposition home or self-care (01) | LOC: AMB 06-07 13:41 | PROVIDERS: PCP Family Medicine; Visit Provider Student in an Organized Health Care Education/Training Program | DX: S12.100A Unspecified displaced fracture of second cervical vertebra, initial encounter for closed fracture (principal); S02.2XXA Fracture of nasal bones, initial encounter for closed fracture; W19.XXXA Unspecified fall, initial encounter | CPT/HCPCS: A0425; A0427 ==